=== PATIENT | male | born 1955 | race Caucasian/White ===

== ENCOUNTER 2020-09-08 16:55 | Emergency (ER) | payer MEDICARE, SELFPAY ==
[2020-09-08 17:01] VITALS: BP 152/70; PULSE 54; RESP 20; TEMP 36.6; O2SAT 100; BMI 24.8
--- NOTE | 2020-09-08 17:04 | DI.RAD.S_ITS ---
PROCEDURE: XR CHEST 1V INDICATIONS: chest pain TECHNIQUE: One view of the chest was acquired. COMPARISON: None. FINDINGS: Surgical changes and devices: None. Lungs and pleura: Mild diffuse interstitial prominence. Cannot exclude interstitial pulmonary edema. No pleural effusions or pneumothorax. Mediastinum: Mediastinal contours appear normal. Heart size is normal. Bones and chest wall: No suspicious bony lesions. Overlying soft tissues appear unremarkable. IMPRESSION: Mild diffuse interstitial prominence. Cannot exclude interstitial pulmonary edema. Dictated by: Dario Sr M.D. on 09/08/2020 at 17:36 Approved by: Dario Sr M.D. on 09/08/2020 at 17:37
[2020-09-08] MEDS: ASPIRIN 81 MG CHEW TAB 324 MG (17:09)
[2020-09-08 17:10] VITALS: BP 190/90; PULSE 95; RESP 21; O2SAT 100
--- NOTE | 2020-09-08 17:10 | PC.NURSE ---
Patient placed on 2L O2 nasal canula.
--- NOTE | 2020-09-08 17:10 | ED.CHESTPAIN ---
HPI - Chest Pain General Chief Complaint: Chest Pain Stated Complaint: chest pain Time Seen by Provider: 09/08/20 17:06 Source: patient Mode of arrival: Wheelchair Limitations: no limitations History of Present Illness HPI narrative: Patient is a 65-year-old [id number] diabetic male here for evaluation of chest discomfort. He states that it has been off and on for the past 24-36 hours however the pain he is experiencing now started approximately 2 hours prior to arrival here in the emergency department. Has been consistent for the past 2 hours. Has had some shortness of breath with it. Not worse with movement or palpation. No prior heart attacks. Related Data Allergies Allergy/AdvReac Type Severity Reaction Status Date / Time No Known Drug Allergies Allergy Verified 09/08/20 17:01 Review of Systems Constitutional Constitutional: Denies chills and Denies fever(s) Cardiovascular Cardiovascular: Reports chest pain, Denies rapid heart rate and Reports dyspnea Respiratory Respiratory: Reports dyspnea Gastrointestinal Gastrointestinal: Denies abdominal pain, Denies nausea and Denies vomiting Genitourinary Genitourinary: Denies dysuria Genitourinary: Denies dysuria Musculoskeletal Musculoskeletal: Denies arthralgias and Denies myalgias Integumentary/Breasts Skin/Breast: Denies rash Neurologic Neurologic: Denies behavioral changes Psychiatric Psychiatric: Denies behavioral changes Hematologic/Lymphatic Hematologic/Lymphatic: Denies easy bleeding and Denies easy bruising Allergic/Immunologic Allergic/Immunologic: Denies urticaria Patient History Medical History Diabetes Social History Smoking Status: Current every day smoker Smoking Status: Current every day smoker Substance Use Type: marijuana Exam Initial Vital Signs Initial Vital Signs: Vital Signs Temperature 97.8 F 09/08/20 17:01 Pulse Rate 54 L 09/08/20 17:01 Respiratory Rate 20 09/08/20 17:01 Blood Pressure 152/70 H 09/08/20 17:01 Pulse Oximetry 100 09/08/20 17:01 Const General: cooperative and No comfortable Limitations: mental status not altered HENMT Head: normal to inspection and normocephalic Resp Effort & Inspection: normal respiratory effort Auscultation: clear to auscultation bilaterally Cardio Rate: bradycardic Rhythm: regular rhythm GI Inspection: non-distended Palpation: soft Skin Lesions: no lesions Rashes: no rashes Neuro General: patient alert, patient awake and patient oriented x3 Cognition: normal cognition Speech: speech normal Extrem General: No edema Psych Appearance: grossly normal and well kempt Scores GCS Felix coma scale eye opening: Spontaneous [place] coma scale verbal response: Orientated Felix coma scale motor response: Obey commands [place] coma scale total score: 15 Course Orders Ordered: ED Orders 09/08/20 17:04 XR chest 1V Stat EKG-12 Lead Stat 09/08/20 17:05 Complete Blood Count AUTO DIFF Stat Comprehensive Metabolic Panel Stat Lipase Stat Partial Thromboplastin Time Stat Prothrombin Time INR Stat Troponin & CK Cardiac Panel Stat 09/08/20 17:13 COVID19 Stat Heparin Sodium/Dextrose (Heparin Drip) 25,000 unit in 500 mls @ 20 mls/hr IV CONT MAXIMO; Protocol Last Admin: 09/08/20 17:15 Dose: 1,000 units/hr, 20 mls/hr Documented by: Discontinued Medications Heparin Sodium (Porcine) (Heparin 5,000 Unit/Ml Vial) 5,000 unit IV NOW ONE Stop: 09/08/20 17:11 Last Admin: 09/08/20 17:13 Dose: 5,000 unit Documented by: Morphine Sulfate (Morphine 4 Mg/Ml Inj) 4 mg IV NOW ONE Stop: 09/08/20 17:12 Last Admin: 09/08/20 17:14 Dose: 4 mg Documented by: Vital Signs Vital signs: Vital Signs - 8 hr 09/08/20 17:01 09/08/20 17:10 09/08/20 17:15 Temperature 97.8 F Pulse Rate 54 L 95 H 93 H Respiratory Rate 20 21 26 H Blood Pressure 152/70 H 190/90 H 184/93 H Pulse Oximetry 100 100 100 09/08/20 17:18 09/08/20 17:19 Temperature Pulse Rate 93 H 88 Respiratory Rate 19 17 Blood Pressure 179/91 H Pulse Oximetry 100 100 MDM - Chest Pain Lab Data Result diagrams: 09/08/20 17:05 09/08/20 17:05 Labs: Lab Results 09/08/20 Range/Units 17:05 WBC 14.5 H (4.5-11.0) X10^3/uL RBC 5.70 (4.5-5.9) X10^6/uL Hgb 15.8 (13.5-17.5) g/dL Hct 48.6 (41-53) % MCV 85.1 (80-100) fL MCH 27.7 (26-34) PG MCHC 32.5 (30-36) % RDW 14.6 (11.6-14.8) % Plt Count 285 (150-400) X10^3/uL Neut % (Auto) 74.9 (50-75) % Lymph % (Auto) 20.1 L (25-40) % [place] % (Auto) 4.4 (3-14) % Eos % (Auto) 0.1 L (2-4) % Baso % (Auto) 0.5 (0-2) % Neut # (Auto) 83010 H (9836-9513) /uL Lymph # (Auto) 2900 (6980-9805) /uL [place] # (Auto) 600 (0-900) /uL Eos # (Auto) 0 (0-450) /uL Baso # (Auto) 100 (0-100) /uL Imaging Data Chest x-ray: Attestation: I personally reviewed and interpreted this imaging study as follows: My Impression: No widened mediastinum No pneumothorax, nor signs are ECG Data Attestation: I personally reviewed and interpreted this ECG as follows: Prior ECG tracings: not available for review Interpretation: Sinus rhythm Ventricular rate of 53 ST elevations [address] depressions hat V2 V3 V4 ST-elevation HI MDM Narrative Medical decision making narrative: Patient was given aspirin. Started the patient on heparin drip. Was also given morphine for pain control. Will hold on nitro given the [address] elevations. Patient not hypotensive. Discussed the case with Dr. Celaya with emergency medicine as [facility] who accepts the patient for transfer for cardiac catheterization. Patient is stable for transfer. Discharge Plan Departure Patient Disposition: [facility] Clinical Impression: ST elevation myocardial infarction (STEMI)
[2020-09-08 17:12] LABS: Add Manual Diff / Slide Review NO; Basophils Absolute Auto 100 /uL (0-100); Basophils Percent Auto 0.5 % (0-2); Eosinophils Absolute Auto 0 /uL (0-450); Eosinophils Percent Auto 0.1 % (2-4); Hematocrit 48.6 % (41-53); Hemoglobin 15.8 g/dL (13.5-17.5); Lymphocytes Absolute Auto 2900 /uL (1100-4500); Lymphocytes Percent Auto 20.1 % (25-40); Mean Corpuscular HGB Conc 32.5 % (30-36); Mean Corpuscular Hemoglobin 27.7 PG (26-34); Mean Corpuscular Volume 85.1 fL (80-100); Monocytes Absolute Auto 600 /uL (0-900); Monocytes Percent Auto 4.4 % (3-14); Neutrophils Absolute Auto 10900 /uL (1500-7000); Neutrophils Percent Auto 74.9 % (50-75); Platelet Count 285 X10^3/uL (150-400); Red Cell Distribution Width 14.6 % (11.6-14.8); White Blood Cell Count 14.5 X10^3/uL (4.5-11.0)
[2020-09-08] MEDS: HEPARIN 5,000 UNIT/ML VIAL 5000 UNIT IV (17:13)
[2020-09-08] MEDS: MORPHINE 4 MG/ML INJ IV (17:14)
[2020-09-08 17:15] VITALS: BP 184/93; PULSE 93; RESP 26; O2SAT 100
[2020-09-08] MEDS: HEPARIN DRIP 25,000 UNIT/500 ML IV.SOLN 20 UNIT IV (17:15)
[2020-09-08 17:18] VITALS: PULSE 93; RESP 19; O2SAT 100
[2020-09-08 17:19] VITALS: BP 179/91; PULSE 88; RESP 17; O2SAT 100
[2020-09-08 17:21] LABS: INR 0.9 (0.9-1.3); Prothrombin Time 10.5 SECONDS (10.1-12.7)
[2020-09-08 17:24] LABS: PTT Partial Thromboplastin Tim 37 SECONDS (26.4-36.2)
[2020-09-08 17:26] LABS: Alanine Aminotransferase 48 IU/L (<50); Albumin Globulin Ratio 1.4 (1.0-2.8); Alkaline Phosphatase 131 U/L (38-126); Aspartate Aminotransferase 49 IU/L (17-59); BUN Creatinine Ratio 21.2 (6-22); Bilirubin Total 0.4 mg/dL (0.2-1.3); Blood Urea Nitrogen 14 mg/dL (9-20); Calcium 9.7 mg/dL (8.4-10.2); Carbon Dioxide 26 mmol/L (22-32); Chloride 98 mmol/L (98-107); Creatine Kinase 181 U/L (55-170); Estimated Glomerular Filt Rate > 60.0 mL/min (>60); Globulin 3.6 g/dL (1.7-4.1); Glucose 334 mg/dL (80-110); HEMOLYSIS < 15 (0-50); Lipase 156 U/L (23-300); Potassium 3.5 mmol/L (3.4-5.1); Sodium 136 mmol/L (137-145); Total Protein 8.6 g/dL (6.3-8.2)
--- NOTE | 2020-09-08 17:27 | PC.NURSE ---
Heparin drip continued in transfer at 20ml//hr.
[2020-09-08 17:34] LABS: COVID19 -Nasal RAPID Negative (Negative)
[2020-09-08 17:40] LABS: Troponin I 0.778 ng/mL (0.01-0.034)
[2020-09-08 17:41] LABS: CKMB % Relative Index 4.9 % (1.5-5.0); Creatine Kinase MB 8.81 ng/mL (<2.37)
== END 2020-09-08 17:28 | disposition short-term general hospital (02) ==
PROVIDERS: Emergency Provider Emergency Medicine
DX: I21.3 ST elevation (STEMI) myocardial infarction of unspecified site (principal); R06.00 Dyspnea, unspecified; E11.9 Type 2 diabetes mellitus without complications; Z79.4 Long term (current) use of insulin
CPT/HCPCS: 36415; 71045; 80053; 82550; 82553; 83690; 84484; 85025; 85610; 85730; 87635; 93005; 93010; 96374; 96375; 99284; J1644; J2270

== ENCOUNTER → 2023-09-19 09:16 | Outpatient (CLI) | payer MEDICARE, SELFPAY ==
--- NOTE | 2023-09-19 09:20 | DI.RAD.S_ITS ---
PROCEDURE: XR CERVICAL SPINE 2V OR 3V INDICATIONS: neck pain, left shoulder pain TECHNIQUE: 3 view(s) of the cervical spine were acquired. COMPARISON: None. FINDINGS: Bones: No fractures or dislocations to the C6 level. Straightening of the normal cervical lordosis. There are multilevel degenerative changes of the cervical spine with facet and uncovertebral arthropathy, disc height loss with degenerative endplate changes and spurring. This is most pronounced at C5-C6 and C6-C7. The lateral masses of C1 appear intact on the odontoid view. No suspicious bony lesions. Soft tissues: No prevertebral soft tissue swelling. IMPRESSION: Multilevel degenerative changes of the cervical spine, most pronounced at C5-C6 and C6-C7. Dictated by: Juice Sue M.D. on 09/19/2023 at 10:44 Approved by: Juice Sue M.D. on 09/19/2023 at 10:46
--- NOTE | 2023-09-19 09:20 | DI.RAD.S_ITS ---
PROCEDURE: XR SHOULDER LT MIN 2V INDICATIONS: neck pain, left shoulder pain TECHNIQUE: 3 views of the shoulder were acquired. COMPARISON: None. FINDINGS: Bones: No fractures or dislocations. Mild acromioclavicular joint osteoarthritis. No suspicious bony lesions. Visualized ribs appear intact. Soft tissues: No suspicious soft tissue calcifications. IMPRESSION: Mild degenerative changes of the acromioclavicular joint. No acute osseous abnormalities. Dictated by: Juice Sue M.D. on 09/19/2023 at 10:46 Approved by: Juice Sue M.D. on 09/19/2023 at 10:47
== END ==
PROVIDERS: PCP Family Medicine; Referring Provider Family Medicine; Visit Provider Family Medicine
DX: M47.812 Spondylosis without myelopathy or radiculopathy, cervical region (principal); M25.512 Pain in left shoulder; M54.2 Cervicalgia
CPT/HCPCS: 72040; 73030

== ENCOUNTER 2025-01-08 21:15 | Inpatient (IN) | payer MEDICARE, SELFPAY ==
[2025-01-08 21:17] VITALS: BP 162/78; PULSE 133; RESP 20; TEMP 37.7; O2SAT 97; BMI 25.1
[2025-01-08 21:30] VITALS: BP 161/77
[2025-01-08 21:31] VITALS: PULSE 126; RESP 13; O2SAT 97
[2025-01-08 22:00] VITALS: PULSE 121; RESP 25; O2SAT 97
--- NOTE | 2025-01-08 22:05 | DI.RAD.S_ITS ---
PROCEDURE: XR CHEST 1V INDICATIONS: suspected sepsis TECHNIQUE: One view of the chest was acquired. COMPARISON: [facility], CR, XR CHEST 1V, 09/08/2020, 17:11. FINDINGS: Surgical changes and devices: None. Lungs and pleura: Redemonstration of chronic coarse interstitial prominence likely sequela of chronic interstitial lung disease/emphysema. Diffuse patchy opacities of the left mid and lower lung zones. Mild perihilar airway thickening. Mediastinum: Mediastinal contours appear normal. Heart size is normal. Bones and chest wall: No suspicious bony lesions. Overlying soft tissues appear unremarkable. IMPRESSION: Patchy left mid and lower lung zone opacity suspicious for pneumonia. This is superimposed on background chronic interstitial coarsening. Recommend follow up chest radiograph 4-6 weeks after treatment to document resolution of findings and/or return to baseline examination. Dictated by: John Smith M.D. on 01/09/2025 at 0:11 Approved by: John Smith M.D. on 01/09/2025 at 0:12
[2025-01-08] MEDS: SODIUM CHLORIDE 0.9% 1,000 ML 1000 ML IV (22:21)
[2025-01-08 22:24] VITALS: BP 161/77; PULSE 124; RESP 20; TEMP 37.7; O2SAT 97; BMI 25.1
[2025-01-08 22:30] VITALS: PULSE 128; RESP 18; O2SAT 97
--- NOTE | 2025-01-08 22:41 | EKG_ITS ---
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
--- NOTE | 2025-01-08 22:46 | DI.CT.S_ITS ---
PROCEDURE: CT ABDOMEN PELVIS W CON INDICATIONS: altered mental status, pain TECHNIQUE: After the administration of intravenous contrast, axial sections acquired from the lung bases to the pubic symphysis. Coronal and sagittal reformats were performed. For radiation dose reduction, the following was used: automated exposure control, adjustment of mA and/or kV according to patient size. COMPARISON: None. FINDINGS: Image quality: Significant motion artifact degrades image quality. Lower Chest: Upper lobe predominant pulmonary emphysematous changes. Prominent hiatal hernia. Mild airway thickening of the bilateral lower lobes with patchy opacities involving the dependent portions of the lower lobes. This may represent atelectasis and/or pneumonia or aspiration. ABDOMEN: Liver: No solid mass. Gallbladder: No radiopaque gallstones or wall thickening. Biliary ducts: No biliary dilation. Pancreas: No ductal dilation. Spleen: Size is within normal limits. Adrenal Glands: No adrenal nodules. Kidneys and Ureters: No hydronephrosis. No solid mass. No complex renal cystic lesion which requires follow up. Stomach and Bowel: Normal colonic caliber, without significant wall thickening. Extensive colonic diverticulosis without evidence for acute diverticulitis. No evidence for small bowel obstruction or associated inflammatory changes. Peritoneum: No abnormal intraperitoneal fluid. No free air. Ventral Wall: No significant ventral hernia. Abdominal Nodes: No retroperitoneal or mesenteric adenopathy by size criteria. Vessels: Scattered atherosclerotic calcifications of the abdominal aorta and iliac vessels without aneurysmal dilatation. The inferior vena cava appears patent. PELVIS: Pelvic Organs: Prostatomegaly. Bladder: Urinary bladder decompressed by Hopkins catheter. Pelvic Nodes: Multiple enlarged left inguinal lymph nodes significantly more pronounced compared to the right side. The largest is more irregular in shape with possible central necrosis measuring 1.9 x 2.7 cm (161/series 2). Miscellaneous: No inguinal hernias are seen. Bones: No aggressive osseous abnormality. No acute vertebral body compression fractures. Multilevel spondylitic changes throughout the imaged spine. No suspicious osseous lesions. IMPRESSION: Patchy bibasilar airspace opacities may represent atelectasis and/or pneumonia or aspiration. There is a prominent hiatal hernia. Colonic diverticulosis without acute diverticulitis. Multiple enlarged left inguinal lymph nodes with the largest appearing irregular and demonstrating possible central necrosis. Recommend outpatient inguinal ultrasound further characterization. Otherwise, no acute abnormalities identified in the abdomen or pelvis. Dictated by: John Smith M.D. on 01/09/2025 at 0:13 Approved by: John Smith M.D. on 01/09/2025 at 0:19
--- NOTE | 2025-01-08 22:54 | DI.CT.S_ITS ---
PROCEDURE: CT HEAD/BRAIN WO CON INDICATIONS: altered mental status TECHNIQUE: Noncontrast 4.5 mm thick angled axial sections acquired from the foramen magnum to the vertex, with coronal and sagittal reformats. For radiation dose reduction, the following was used: automated exposure control, adjustment of mA and/or kV according to patient size. COMPARISON: [facility], MR, MR BRAIN WITHOUT CONTRAST, 01/31/2024, 7:46. [facility], CT, CT HEAD WITHOUT CONTRAST, 01/30/2024, 22:49. FINDINGS: Image quality: Diagnostic. CSF spaces: Basal cisterns are patent. No extra-axial fluid collections. The ventricles are symmetric in size and shape. Brain: No intracranial bleeds or masses. There is moderate cerebral volume loss for age, with resultant ventricular and sulcal prominence. There are moderate periventricular and deep white matter chronic small vessel ischemic changes. There is intracranial internal carotid artery atherosclerosis. There is moderate area of left parieto-occipital lobe encephalomalacia compatible with sequela previously described infarction. Skull and face: Calvarium and visualized facial bones appear intact, without suspicious lesions. Sinuses: Visualized sinuses and mastoids are clear. IMPRESSION: 1. CT head without acute intracranial abnormalities or acute calvarial fractures. 2. Age-related senescent changes and sequela of chronic small vessel ischemic disease. 3. 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 Dictated by: John Smith M.D. on 01/09/2025 at 0:20 Approved by: John Smith M.D. on 01/09/2025 at 0:22
[2025-01-08 22:56] LABS: Add Manual Diff / Slide Review NO; Basophils Absolute Auto 100 /uL (0-100); Basophils Percent Auto 0.7 % (0-2); Eosinophils Absolute Auto 0 /uL (0-450); Hematocrit 37.7 % (41-53); Hemoglobin 12.5 g/dL (13.5-17.5); Lymphocytes Absolute Auto 300 /uL (1100-4500); Lymphocytes Percent Auto 1.6 % (25-40); Mean Corpuscular HGB Conc 33.1 % (30-36); Mean Corpuscular Hemoglobin 28.2 PG (26-34); Monocytes Absolute Auto 700 /uL (0-900); Monocytes Percent Auto 3.3 % (3-14); Neutrophils Absolute Auto 19600 /uL (1500-7000); Neutrophils Percent Auto 94.4 % (50-75); Platelet Count 336 X10^3/uL (150-400); Red Blood Cell Count 4.44 X10^6/uL (4.5-5.9); Red Cell Distribution Width 14.7 % (11.6-14.8); White Blood Cell Count 20.8 X10^3/uL (4.5-11.0)
[2025-01-08 23:04] LABS: INR 1.1 (0.9-1.3)
[2025-01-08 23:05] LABS: Appearance Urine UA CLEAR; Bilirubin Urine UA NEGATIVE (NEGATIVE); Color Urine UA YELLOW; Glucose Urine UA 2+ g/dL (Negative); Ketones Urine UA TRACE (NEGATIVE); Leukocyte Esterase Urine UA NEGATIVE (NEGATIVE); Nitrite Urine UA NEGATIVE (Negative); Occult Blood Urine UA 1+ (Negative); Protein Urine UA TRACE (Negative); Urobilinogen Urine UA 0.2 E.U./dL (0.2)
[2025-01-08 23:07] LABS: PTT Partial Thromboplastin Tim 39 SECONDS (25.1-36.5)
[2025-01-08 23:12] LABS: Bacteria Urine None Seen; Culture Indicated Urine Cult Not Indicated; RBC Urine 5-10/HPF (0-5/HPF); Squamous Epithelial Cell Urine 0-1 /HPF (0-5/HPF); Transitional Epi Cells Urine 0-1/HPF (0-5/HPF); Urine Volume 10mL (spun); WBC Urine 0-1/HPF (0-5/HPF)
[2025-01-08 23:12] LABS: Alanine Aminotransferase 23 IU/L (<50); Albumin 4.5 g/dL (3.5-5.0); Albumin Globulin Ratio 1.4 (1.0-2.8); Alkaline Phosphatase 79 U/L (38-126); Aspartate Aminotransferase 31 IU/L (17-59); BUN Creatinine Ratio 22.5 (6-22); Bilirubin Total 0.6 mg/dL (0.2-1.3); Blood Urea Nitrogen 23 mg/dL (9-20); Calcium 10.1 mg/dL (8.4-10.2); Carbon Dioxide 23 mmol/L (22-32); Chloride 93 mmol/L (98-107); Estimated Glomerular Filt Rate > 60 mL/min (>60); Globulin 3.2 g/dL (1.7-4.1); Glucose 273 mg/dL (80-110); HEMOLYSIS < 15 (0-50); Lactate (Lactic Acid) 2.1 mmol/L (0.7-2.1); Lipase 22 U/L (23-300); Potassium 4.4 mmol/L (3.4-5.1); Sodium 129 mmol/L (137-145); Total Protein 7.7 g/dL (6.3-8.2)
[2025-01-08 23:18] LABS: Ketones (Beta-Hydroxybutyrate) 0.49 mmol/L (<0.27)
[2025-01-08] MEDS: CEFEPIME 2 GM in SODIUM CHLORIDE 0.9% 100 ML IV (23:18)
[2025-01-08] MEDS: HYDROMORPHONE 1 MG INJ IV (23:19)
[2025-01-09] VITALS (23 sets, daily range): BP systolic 97–142; BP diastolic 53–83; PULSE 65–150; RESP 15–35; O2SAT 81–98; BMI 25.0
[2025-01-09 00:01] LABS: Base Excess VBG -1.7 mmol/L (0-4); HCO3 VBG 22 mmol/L (24-28); Oxygen Saturation VBG 55 % (70-75); PCO2 VBG 33.6 mmHg (45-50); PO2 VBG 28 mmHg (35-45); Total CO2 VBG 21 mmol/L (24-29); pH VBG 7.42 (7.33-7.43)
[2025-01-09 00:09] LABS: Influenza A - CEPHEID Flu A NEGATIVE (NEGATIVE); Influenza B - CEPHEID Flu B NEGATIVE (NEGATIVE); Respiratory Syncytial Virus Negative (Negative)
[2025-01-09] MEDS: VANCOMYCIN 2,000 MG/400 ML PIGGYBACK 200 MG IV (00:09)
[2025-01-09 00:14] LABS: COVID-19 CEPHEID 4-PLEX PCR Negative (Negative)
[2025-01-09 00:21] LABS: Reflexed Lactate in 2 Hours Y
--- NOTE | 2025-01-09 00:37 | EKG_ITS ---
[place] [id number] [place] [id number] Test Date: 2025-01-09 Pat Name: Ike Barnes Department: Room: Gender: Male Commercial Counsel: JACQUES BLANCO : 1955 Requested By: Order Number: [id number] Reading MD: Fabrice Ayala MD Measurements Intervals [place] Rate: 131 P: [place]: QRS: 81 QRSD: 116 T: 74 QT: 320 QTc: 472 Interpretive Statements Sinus Rhythm Anteroseptal infarct , possibly acute Electronically Signed On 01-10-2025 8:50:41 PDT by Fabrice Ayala MD
--- NOTE | 2025-01-09 00:39 | ED.GENADULT ---
HPI - General Adult General Chief complaint: Altered Mental Status Stated complaint: confusion, unresponsive Time Seen by Provider: 01/08/25 21:21 Mode of arrival: Family Vehicle History of Present Illness HPI narrative: 69-year-old gentleman brought in from home by medics with altered mental status, too confused to meaningfully participate in exam or review of systems. His family notes that he had a stroke last year, he has been increasingly confused. Incontinent of urine and stool per medics. Family not immediately available for interview. Related Data Allergies Allergy/AdvReac Type Severity Reaction Status Date / Time No Known Drug Allergies Allergy Verified 09/08/20 17:01 Review of Systems Review of Systems ROS Unobtainable: Unobtainable due to medical condition and Unobtainable due to mental status/LOC Patient History Medical History Diabetes Social History Smoking Status: Current every day smoker Smoking Status: Current every day smoker tobacco type: cigarettes Exam Initial Vital Signs Initial Vital Signs: Vital Signs Temperature 100 F H 01/08/25 21:17 Pulse Rate 133 H 01/08/25 21:17 Respiratory Rate 20 01/08/25 21:17 Blood Pressure 162/78 H 01/08/25 21:17 Pulse Oximetry 97 01/08/25 21:17 Oxygen Delivery Method Nasal Cannula 01/08/25 21:17 General: Chronically ill-appearing, altered, moaning seemingly in pain HEENT: Dry mucous membranes, normal sclera with reactive pupils, Neck: Positive JVD Respiratory: Lungs with mild rhonchi bilaterally left greater than right, minimal wheeze, mild tachypnea without retractions Cardiac: Tachycardic, no murmurs appreciated Abdomen: Soft, diffusely tender to palpation, moans with exam Skin: Pale, overall poor perfusion Neurologic: Minimally interactive, he is moving all extremities, is not able to cooperate with exam Extremities: No lower extremity edema. He has old bruise on his hip with no pain behaviors in manipulating his hips Procedures Central Line Placement Right IJ: Time of procedure: 03:43 Patient Placed on Monitor/Pulse Ox: Yes MD Prep: mask and gloves Central Line Prep: Chlorhexidine scrub Ultrasound Used for Placement: Yes Central Line Lumen Inserted: triple Post Procedure: sutured in place, good blood return, all ports aspirated, flushed, capped and sterile dressing applied Post Procedure X-Ray: tip of catheter in good position and no pneumothorax seen (No pneumothorax on the right side, site of the central line. Pneumothorax already appreciated on the left side, appropriately treated with chest tube in place) Patient Tolerated Procedure: Well Complications: none Chest Tube Chest Tube 1: Time of procedure: 03:45 Chest Tube Location: left and anterior axillary line Size of Tube (cm): 10 (bailee catheter) Chest Tube Prep: Yes betadine prep and sterile drapes applied Post Procedure CXR?: Yes Patient Tolerated Procedure: Yes (improved oxygenation) Intubation Time of Intubation: 03:47 sedative: Etomidate Mg Given: 20 paralytic: Succinylcholine Mg Given: 100 Assist Device Used: fiber optic device ET Tube Size: 8 Tube Secured Depth (cm): 24 Tube Secured Location: teeth Tube Placement Confirmation: Visualized tube passing through cords, Equal breath sounds bilaterally, Confirmation by capnometry and Chest Xray Patient Tolerated Procedure: Well Course Orders Ordered: ED Orders 01/08/25 22:05 XR chest 1V Stat EKG-12 Lead Stat RT Consult Eval and Treat NOW 01/08/25 22:20 Complete Blood Count AUTO DIFF Stat Comprehensive Metabolic Panel Stat Ketones (Beta-Hydroxybutyrate) Stat Lactate (Lactic Acid) Stat Lipase Stat PTT Partial Thromboplastin Primitivo Stat Procalcitonin Stat Prothrombin Time INR Stat 01/08/25 22:36 Blood Culture Stat 01/08/25 22:38 UA Complete [Urinalysis and Microscopic] Stat 01/08/25 22:46 CT abdomen pelvis w con Stat VBG [Venous Blood Gas] STAT 01/08/25 22:54 CT head/brain wo con Stat 01/08/25 23:25 Covid-19 + FLU A/B + RSV - PCR Stat 01/08/25 23:57 Venous Blood Gas Routine 01/09/25 00:32 EKG-12 Lead Stat 01/09/25 00:53 XR chest 1V Stat 01/09/25 01:04 XR chest 1V Stat 01/09/25 01:55 Arterial Blood Gas ROUTINE 01/10/25 05:00 Hemoglobin and Hematocrit DAILY Platelet Count DAILY 01/11/25 05:00 Hemoglobin and Hematocrit DAILY Platelet Count DAILY Hydromorphone HCl (Hydromorphone 2 Mg Inj) 2 mg IV Q15MIN PRN PRN Reason: pain Last Admin: 01/09/25 06:06 Dose: 2 mg Documented By: Admin: 01/09/25 05:42 Dose: 2 mg Documented By: Admin: 01/09/25 04:27 Dose: 2 mg Documented By: LS NOREPINEPHRINE BITARTRATE/D5W (Levophed) 4 mg in 250 mls @ 29.767 mls/hr IV TITRATE MAXIMO; Protocol Last Admin: 01/09/25 02:23 Dose: Not Given Documented By: RLC Propofol (Diprivan) 1,000 mg in 100 mls @ 2.381 mls/hr IV TITRATE MAXIMO; Protocol Last Titration: 01/09/25 02:40 Dose: 0 mcg/kg/min, 0 mls/hr Documented By: Titration: 01/09/25 02:18 Dose: 5 mcg/kg/min, 2.381 mls/hr Documented By: Titration: 01/09/25 01:29 Dose: 10 mcg/kg/min, 4.763 mls/hr Documented By: Admin: 01/09/25 01:15 Dose: 5 mcg/kg/min, 2.381 mls/hr Documented By: RLC Heparin Sodium/Dextrose (Heparin Drip) 25,000 unit in 500 mls @ 19.051 mls/hr IV CONT MAXIMO; Protocol Last Admin: 01/09/25 03:01 Dose: Not Given Documented By: RLC Morphine Sulfate 50 mg/ Sodium (Chloride) 50 mls @ 5 mls/hr IV TITRATE MAXIMO; Protocol Last Admin: 01/09/25 04:39 Dose: 40 mg/hr, 40 mls/hr Documented By: Titration: 01/09/25 04:39 Dose: Infused Documented By: Titration: 01/09/25 04:25 Dose: 40 mg/hr, 40 mls/hr Documented By: Titration: 01/09/25 04:10 Dose: 30 mg/hr, 30 mls/hr Documented By: Titration: 01/09/25 03:50 Dose: 25 mg/hr, 25 mls/hr Documented By: Titration: 01/09/25 03:25 Dose: 20 mg/hr, 20 mls/hr Documented By: Titration: 01/09/25 03:15 Dose: 15 mg/hr, 15 mls/hr Documented By: Titration: 01/09/25 03:06 Dose: 10 mg/hr, 10 mls/hr Documented By: Titration: 01/09/25 02:59 Dose: 6 mg/hr, 6 mls/hr Documented By: Admin: 01/09/25 02:16 Dose: 5 mg/hr, 5 mls/hr Documented By: TEA Vancomycin HCl 1,000 mg/ (Sodium Chloride) 250 mls @ 167 mls/hr IV Q12H MAXIMO Morphine Sulfate 50 mg/ Sodium (Chloride) 50 mls @ 2 mls/hr IV TITRATE MAXIMO; Protocol Naloxone HCl (Naloxone 0.4 Mg/Ml Vial) 0.2 mg IV Q2MIN PRN PRN Reason: Opiate Reversal Ondansetron HCl (Ondansetron 4 Mg/2 Ml Inj) 4 mg IV NOW PRN PRN Reason: Nausea And Vomiting Ondansetron HCl (Ondansetron 4 Mg Odt) 4 mg SL NOW PRN PRN Reason: Nausea And Vomiting Ondansetron HCl (Ondansetron 4 Mg/2 Ml Inj) 4 mg IV Q8HR PRN PRN Reason: Nausea And Vomiting Discontinued Medications Etomidate (Etomidate 2 Mg/Ml 10 Ml Vial) 20 mg IV NOW ONE Stop: 01/09/25 00:52 Last Admin: 01/09/25 00:51 Dose: 20 mg Documented By: TEA Heparin Sodium (Porcine) (Heparin 5,000 Unit/Ml Vial) 5,000 unit 60 unit/kg (5000 unit) IV NOW ONE Stop: 01/09/25 01:04 Last Admin: 01/09/25 01:12 Dose: 5,000 unit Documented By: TEA Hydromorphone HCl (Hydromorphone 1 Mg Inj) 1 mg IV NOW ONE Stop: 01/08/25 22:55 Last Admin: 01/08/25 23:19 Dose: 1 mg Documented By: HUGH Hydromorphone HCl (Hydromorphone 1 Mg Inj) 2 mg IV Q15MIN PRN PRN Reason: pain Last Admin: 01/09/25 04:12 Dose: 2 mg Documented By: TEA Hydromorphone HCl (Hydromorphone 2 Mg Inj) 2 mg IV Q15MIN MAXIMO Sodium Chloride (Normal Saline 0.9%) 1,000 mls @ 1,000 mls/hr IV BOLUS ONE Stop: 01/08/25 23:04 Last Infusion: 01/08/25 23:19 Dose: Infused Documented By: Admin: 01/08/25 22:21 Dose: 1,000 mls/hr Documented By: HUGH Cefepime HCl 2 gm/ Sodium (Chloride) 100 mls @ 200 mls/hr IV NOW ONE Stop: 01/08/25 22:53 Last Infusion: 01/09/25 00:00 Dose: Infused Documented By: Admin: 01/08/25 23:18 Dose: 200 mls/hr Documented By: HUGH Vancomycin HCl/Dextrose (Vancomycin) 2,000 mg in 400 mls @ 200 mls/hr IV NOW ONE Stop: 01/09/25 00:59 Last Infusion: 01/09/25 00:30 Dose: 200 mls/hr Documented By: Admin: 01/09/25 00:09 Dose: 200 mls/hr Documented By: TEA Morphine Sulfate 50 mg/ Sodium (Chloride) 50 mls @ 5 mls/hr IV TITRATE MAXIMO; Protocol Sodium Chloride (Normal Saline 0.9%) 1,000 mls @ 1,000 mls/hr IV BOLUS ONE Stop: 01/09/25 02:16 Last Infusion: 01/09/25 01:44 Dose: Infused Documented By: Admin: 01/09/25 01:17 Dose: 1,000 mls/hr Documented By: TEA Ketamine HCl (Ketamine 500 Mg/5 Ml Inj) 10 mg IV NOW ONE Stop: 01/09/25 05:01 Last Admin: 01/09/25 04:50 Dose: 10 mg Documented By: JAXON Morphine Sulfate (Morphine 4 Mg/Ml Inj) 10 mg IV NOW ONE Stop: 01/09/25 03:43 Last Admin: 01/09/25 03:55 Dose: 10 mg Documented By: TEA Propofol (Propofol 200 Mg/20 Ml Vial) 20 mg IV NOW ONE Stop: 01/09/25 01:03 Last Admin: 01/09/25 01:02 Dose: 20 mg Documented By: TEA Propofol (Propofol 200 Mg/20 Ml Vial) 40 mg IV NOW ONE Stop: 01/09/25 01:08 Last Admin: 01/09/25 01:07 Dose: 40 mg Documented By: TEA Propofol (Propofol 200 Mg/20 Ml Vial) 20 mg IV NOW ONE Stop: 01/09/25 01:34 Last Admin: 01/09/25 03:52 Dose: 20 mg Documented By: TEA Succinylcholine Chloride (Succinylcholine 200 Mg/10 Ml Vial) 100 mg IV NOW ONE Stop: 01/09/25 00:53 Last Admin: 01/09/25 00:52 Dose: 100 mg Documented By: TEA Vancomycin HCl (Vancomycin Per Pharmacy) 1 request MISC NOW ONE Stop: 01/08/25 22:53 Last Admin: 01/09/25 00:13 Dose: Not Given Documented By: TEA Vital Signs Vital signs: Vital Signs - 8 hr 01/08/25 22:24 01/08/25 22:30 01/09/25 00:50 Temperature 99.8 F H Pulse Rate 124 H 128 H 150 H Respiratory Rate 20 18 28 H Blood Pressure 161/77 H 142/74 H Pulse Oximetry 97 97 81 L Oxygen Delivery Method Room Air 01/09/25 00:55 01/09/25 01:00 01/09/25 01:05 Temperature Pulse Rate 150 H 130 H 140 H Respiratory Rate 32 H 15 24 Blood Pressure 137/77 138/79 140/83 Pulse Oximetry 84 L 94 88 L Oxygen Delivery Method 01/09/25 01:10 01/09/25 01:15 01/09/25 01:20 Temperature Pulse Rate 130 H 127 H 124 H Respiratory Rate 29 H 30 H 35 H Blood Pressure 109/64 101/64 102/64 Pulse Oximetry 91 93 96 Oxygen Delivery Method 01/09/25 01:25 01/09/25 01:30 01/09/25 01:35 Temperature Pulse Rate 123 H 125 H 116 H Respiratory Rate 26 H 27 H Blood Pressure 127/71 128/63 114/56 L Pulse Oximetry 98 93 97 Oxygen Delivery Method 01/09/25 01:40 01/09/25 01:45 01/09/25 01:50 Temperature Pulse Rate 115 H 110 H 114 H Respiratory Rate 30 H 30 H 32 H Blood Pressure 114/61 106/55 L 103/59 L Pulse Oximetry 98 98 95 Oxygen Delivery Method 01/09/25 01:55 01/09/25 02:00 01/09/25 02:15 Temperature Pulse Rate 111 H 122 H 113 H Respiratory Rate 30 H 30 H 27 H Blood Pressure 97/53 L 134/62 107/55 L Pulse Oximetry 93 96 93 Oxygen Delivery Method 01/09/25 02:30 01/09/25 03:00 01/09/25 04:00 Temperature Pulse Rate 109 H 120 H 122 H Respiratory Rate 23 34 H 30 H Blood Pressure 101/59 L 105/62 Pulse Oximetry 91 84 L 87 L Oxygen Delivery Method Medical Decision Making Lab Data 01/08/25 22:20 01/08/25 22:20 Labs: Lab Results 01/08/25 01/08/25 01/08/25 Range/Units 22:20 22:38 23:25 WBC 20.8 H (4.5-11.0) X10^3/uL RBC 4.44 L (4.5-5.9) X10^6/uL Hgb 12.5 L (13.5-17.5) g/dL Hct 37.7 L (41-53) % MCV 85.0 (80-100) fL MCH 28.2 (26-34) PG MCHC 33.1 (30-36) % RDW 14.7 (11.6-14.8) % Plt Count 336 (150-400) X10^3/uL Neut % (Auto) 94.4 H (50-75) % Lymph % (Auto) 1.6 L (25-40) % [place] % (Auto) 3.3 (3-14) % Eos % (Auto) 0.0 L (2-4) % Baso % (Auto) 0.7 (0-2) % Neut # (Auto) 74985 H (0399-4038) /uL Lymph # (Auto) 300 L (6524-8755) /uL [place] # (Auto) 700 (0-900) /uL Eos # (Auto) 0 (0-450) /uL Baso # (Auto) 100 (0-100) /uL PT 12.0 (9.4-12.5) SECONDS INR 1.1 (0.9-1.3) APTT 39 H (25.1-36.5) SECONDS VBG pH (7.33-7.43) VBG pCO2 (45-50) mmHg VBG pO2 (35-45) mmHg VBG HCO3 (24-28) mmol/L VBG Total CO2 (24-29) mmol/L VBG O2 Saturation (70-75) % VBG Base Excess (0-4) mmol/L Sodium 129 L (137-145) mmol/L Potassium 4.4 (3.4-5.1) mmol/L Chloride 93 L (98-107) mmol/L Carbon Dioxide 23 (22-32) mmol/L BUN 23 H (9-20) mg/dL Creatinine 1.02 (0.66-1.25) mg/dL Estimated GFR > 60 (>60) mL/min BUN/Creatinine Ratio 22.5 H (6-22) Glucose 273 H (80-110) mg/dL Lactate 2.1 (0.7-2.1) mmol/L Calcium 10.1 (8.4-10.2) mg/dL Total Bilirubin 0.6 (0.2-1.3) mg/dL AST 31 (17-59) IU/L ALT 23 (<50) IU/L Alkaline Phosphatase 79 (38-126) U/L Total Protein 7.7 (6.3-8.2) g/dL Albumin 4.5 (3.5-5.0) g/dL Globulin 3.2 (1.7-4.1) g/dL Albumin/Globulin Ratio 1.4 (1.0-2.8) Lipase 22 L (23-300) U/L Procalcitonin 3.40 H (<0.5) ng/mL Urine Color Yellow Urine Appearance Clear Urine pH 6.0 (4.5-8.0) Ur Specific [place] 1.020 (1.000-1.035) Urine Protein Trace H (Negative) Urine Glucose (UA) 2+ H (Negative) g/dL Urine Ketones Trace H (NEGATIVE) Urine Occult Blood 1+ H (Negative) Urine Nitrate Negative (Negative) Urine Bilirubin Negative (NEGATIVE) Urine Urobilinogen 0.2 (0.2) E.U./dL Ur Leukocyte Esterase Negative (NEGATIVE) Urine RBC 5-10/hpf H (0-5/HPF) Urine WBC 0-1/hpf (0-5/HPF) Ur Squamous Epith Cells 0-1 /hpf (0-5/HPF) Ur Transition Epith Cell 0-1/hpf (0-5/HPF) Urine Bacteria None seen (None) Ur Culture Indicated? Cult not indicated Vol Urine Centrifuged 10ml (spun) Ketones 0.49 H (<0.27) mmol/L SARS-CoV-2 (PCR) Negative (Negative) Influenza A (RT-PCR) Flu a negative (NEGATIVE) Influenza B (RT-PCR) Flu b negative (NEGATIVE) RSV (PCR) Negative (Negative) 01/08/25 01/09/25 Range/Units 23:57 00:27 WBC (4.5-11.0) X10^3/uL RBC (4.5-5.9) X10^6/uL Hgb (13.5-17.5) g/dL Hct (41-53) % MCV (80-100) fL MCH (26-34) PG MCHC (30-36) % RDW (11.6-14.8) % Plt Count (150-400) X10^3/uL Neut % (Auto) (50-75) % Lymph % (Auto) (25-40) % Oto[place] % (Auto) (3-14) % Eos % (Auto) (2-4) % Baso % (Auto) (0-2) % Neut # (Auto) (7231-4409) /uL Lymph # (Auto) (0957-5296) /uL [place] # (Auto) (0-900) /uL Eos # (Auto) (0-450) /uL Baso # (Auto) (0-100) /uL PT (9.4-12.5) SECONDS INR (0.9-1.3) APTT (25.1-36.5) SECONDS VBG pH 7.42 (7.33-7.43) VBG pCO2 33.6 L (45-50) mmHg VBG pO2 28 L (35-45) mmHg VBG HCO3 22 L (24-28) mmol/L VBG Total CO2 21 L (24-29) mmol/L VBG O2 Saturation 55 L (70-75) % VBG Base Excess -1.7 L (0-4) mmol/L Sodium (137-145) mmol/L Potassium (3.4-5.1) mmol/L Chloride (98-107) mmol/L Carbon Dioxide (22-32) mmol/L BUN (9-20) mg/dL Creatinine (0.66-1.25) mg/dL Estimated GFR (>60) mL/min BUN/Creatinine Ratio (6-22) Glucose (80-110) mg/dL Lactate 6.9 H* (0.7-2.1) mmol/L Calcium (8.4-10.2) mg/dL Total Bilirubin (0.2-1.3) mg/dL AST (17-59) IU/L ALT (<50) IU/L Alkaline Phosphatase (38-126) U/L Total Protein (6.3-8.2) g/dL Albumin (3.5-5.0) g/dL Globulin (1.7-4.1) g/dL Albumin/Globulin Ratio (1.0-2.8) Lipase (23-300) U/L Procalcitonin (<0.5) ng/mL Urine Color Urine Appearance Urine pH (4.5-8.0) Ur Specific [place] (1.000-1.035) Urine Protein (Negative) Urine Glucose (UA) (Negative) g/dL Urine Ketones (NEGATIVE) Urine Occult Blood (Negative) Urine Nitrate (Negative) Urine Bilirubin (NEGATIVE) Urine Urobilinogen (0.2) E.U./dL Ur Leukocyte Esterase (NEGATIVE) Urine RBC (0-5/HPF) Urine WBC (0-5/HPF) Ur Squamous Epith Cells (0-5/HPF) Ur Transition Epith Cell (0-5/HPF) Urine Bacteria (None) Ur Culture Indicated? Vol Urine Centrifuged Ketones (<0.27) mmol/L SARS-CoV-2 (PCR) (Negative) Influenza A (RT-PCR) (NEGATIVE) Influenza B (RT-PCR) (NEGATIVE) RSV (PCR) (Negative) Urine Dip Bedside Urine Glucose 1000 mg/dl Bedside Urine Bilirubin - Negative Bedside Urine Ketone +/- 5 Urine Specific [place] 1.015 Bedside Urine Occult Blood + Bedside Urine pH 6 Bedside Urine Protein +/- 15 Bedside Urine Urobilinogen - Negative Bedside Urine Nitrite - Negative Bedside Urine Leukocytes - Negative Esterase Point of care testing: Urine Dip Bedside Urine Glucose 1000 mg/dl Bedside Urine Bilirubin - Negative Bedside Urine Ketone +/- 5 Urine Specific [place] 1.015 Bedside Urine Occult Blood + Bedside Urine pH 6 Bedside Urine Protein +/- 15 Bedside Urine Urobilinogen - Negative Bedside Urine Nitrite - Negative Bedside Urine Leukocytes - Negative Esterase MDM Narrative Medical decision making narrative: CC: Acutely altered mental status Complicating co-morbidities: Reported stroke a year ago Data collected from: Medics Medical records reviewed: None initially available After initial workup, significant decompensation, resuscitation and attempts to transfer to higher level care, spoke with new accounts banking representative at [facility] who indicated the patient had severe coronary artery disease and abnormal stress test with angiography declined in February of 2024, poorly-controlled diabetes and hypertension was discharged from [facility] in February of 2024 and at that point made DNR/comfort care. Unfortunately, I was not aware of any this prior to interventions and initial workup. Differential considered: Sepsis, pneumonia, viral syndrome, intra-abdominal abscess, intracranial hemorrhage, DKA, patient has hydrocodone and methadone as part of his prescription medications and acute narcotic withdrawal may be contributing to the abdominal pain Exam documented above, pertinent findings include: Patient is moaning and in extremis. Seems to be experiencing abdominal discomfort, has mild rhonchi bilaterally without significant respiratory distress or wheeze. No obvious skin changes or abscess. He is moving all extremities but is not aware of surroundings responding to direct questions Lab Test results independently reviewed as above. Pertinent findings: CBC shows significant leukocytosis at 20.8 with significant left shift, mild anemia Chemistries are notable for normal renal function, hyponatremia at 1:29 a.m., glucose of 273, liver studies are not elevated Initial lactate is 2.1, repeat is 6.9 Initial procalcitonin is elevated at 3.4 Urine shows red blood cells but no white blood cells or bacteria. Did not suspect urine is the source for infection Once the patient was made DNR with full comfort care, all additional labs were canceled. Troponin was in this collection of canceled labs Independently reviewed EKG: Appears to be sinus tachycardia poor baseline difficult to interpret, lateral ST depression appreciated Repeat EKG shows rhythm change, question atrial fibrillation versus sinus arrhythmia. Q-waves anteriorly with ST-elevation inferiorly and depression laterally. EKG change was accompanied by significant acute deterioration clinical status Imaging studies independently reviewed: -Initial chest x-ray shows left lung infiltrates concerning for pneumonia -CT abdomen shows bibasilar airspace opacities consistent with pneumonia. No diverticulitis, enlarged left inguinal lymph nodes with largest appearing irregular and demonstrating possible central necrosis. -CT scan of the head done for acute mental status changes were is unremarkable After acute decompensation, initial chest x-ray post intubation suggests left sided pneumothorax. ET tube in position Final chest x-ray shows central line in place, ET tube in position, left chest tube in place with fully inflated lung and resolution of slight right-sided mediastinal shift Treatments: On initial arrival patient was presumed to be septic, was started on cefepime and vancomycin after blood cultures were ordered. He was not hypotensive. Because he was tachycardic he was given fluids. Source of infection was yet to be identified but suspected to be intra-abdominal given his clinical presentation and pain behaviors Patient had acute degeneration clinical symptoms with significant decrease in oxygen saturations from the mid 90s on room air to the 50s. Acute rhythm change unclear if this was AFib with aberrancy, developing STEMI but was concurrent with acute hypoxic change Patient was urgently moved to room 1 for more expedient resuscitation -additional fluids given -intubated without difficulty and improved oxygenation with decreasing heart rate is oxygenation improved -post intubation x-ray suggested pneumothorax which could explain the acute respiratory deterioration. Left-sided chest tube was placed with continued improved oxygenation. Left lung pneumonia becoming more apparent -central line placed, that point blood pressure is falling and Levophed is initiated -call to [facility], reviewed acute EKG changes in deterioration with kaiako kura tuarua felt that he clearly was sick but did not meet STEMI criteria and with the degree of sepsis and other medical issues urgent heart catheterization was not immediately indicated. ICU beds not available at [facility] -call to [facility] to discuss transfer. Medical records are finally available and turns out that the patient a year ago had wanted to be DNR DNI, comfort measures -family was now available and family conference is held. Caregiver and son do agree that patient definitely felt that he was done living and did want to be DNR. His son notes that he really got a bed, was too weak to do any meaningful activities and had repeatedly told his son that he was ready to -in light of new information, decision to extubate patient and move to full comfort with family at bedside was made -drips and pressors are discontinued, he is transitioned from propofol sedation to morphine drip, with family at bedside he is extubated We will evaluate in the ER over the next 1-2 hours to see if he significantly deteriorates quickly or if admission for comfort treatment we will be appropriate Due to his high baseline narcotic tolerance he is going fairly significantly on morphine drip. we are actually running out of morphine availability in the hospital this evening. We will add 2 mg of IV Dilaudid every 15 minute as a push for pain behaviors Discussion: 69-year-old gentleman initially brought in by medics with minimal data available, obviously septic with significantly altered mental status unable to participate in history taking. Began resuscitation efforts for presumed sepsis and search for sepsis. Patient had acute deterioration than in retrospect likely was spontaneous pneumothorax secondary to his long-term tobacco use and developing pneumonia on the left side cause significant hypoxia which led to his change in cardiac rhythm. After stabilization with chest tube, intubation, central line fluids, pressors, heparin with concern for acute STEMI, antibiotics already infused findings reviewed with outside hospital who indicated that the your before he would wanted to be DNR, comfort care with overall exceptionally poor prognosis with severe cardiac disease, stroke and poor quality of life. Family is not available for further discussion who confirm very poor quality of life in the fact that he would want to have minimal interventions. Based on that he was extubated with the family at bedside with morphine drip. He was on methadone and Vicodin so does have high narcotic tolerance with significant pain behaviors, obviously looks uncomfortable. Morphine is titrated to comfort. Family remains at bedside, questions are answered have remained available for questions throughout the emergency room stay. patient is still moaning in discomfort, morphine is now at 40 mics per hour, added Dilaudid 2 mg as needed dosing. Consultation with the hospitalist she will try 10 mg sepsis of ketamine to see if we can get this gentleman at least comfortable so he is not moaning in pain. It does not appear that his and is immediately imminent, I believe he and his family may be better suited by admission to the floor for continued comfort care Critical Care Time Critical Care Time Critical Care Time: Yes Total Critical Care Time: 76 Attestation: Critical care time is separate from other billable procedures. There is a high probability of a significant, sudden or life-threatening deterioration that requires my full and direct attention, intervention and personal management. This critical care time includes consultation with family and other consulting doctors, review of records, and interpretation of data from labs, EKGs and imaging as well as managements of respiratory failure, on neurologic failure, sepsis, shock, cardiac failure Discharge Plan Departure Patient Disposition: Admitted as Observation Clinical Impression: Bacterial pneumonia, Spontaneous pneumothorax, Acute hyponatremia, Acute hypoxic respiratory failure, Need for comfort care Altered mental status Qualifiers: Altered mental status type: unspecified Qualified Code(s): R41.82 - Altered mental status, unspecified Sepsis Qualifiers: Sepsis type: sepsis due to unspecified organism Sepsis acute organ dysfunction status: with acute organ dysfunction Cardiac rhythm disorder or disturbance or change Qualifiers: Arrhythmia type: unspecified cardiac arrhythmia Qualified Code(s): I49.9 - Cardiac arrhythmia, unspecified Admit Date/Time: 01/09/25 04:29 Admit Provider: Chase Mullen
[2025-01-09] MEDS: ETOMIDATE 2 MG/ML 10 ML VIAL 20 MG IV (00:51)
[2025-01-09] MEDS: SUCCINYLCHOLINE 200 MG/10 ML VIAL 100 MG IV (00:52)
--- NOTE | 2025-01-09 00:53 | DI.RAD.S_ITS ---
PROCEDURE: XR CHEST 1V INDICATIONS: ` TECHNIQUE: One view of the chest was acquired. COMPARISON: [facility], CR, XR CHEST 1V, 01/08/2025, 22:01. FINDINGS: Surgical changes and devices: Endotracheal tube tip projects approximately 1.8 cm above the juan antonio. Defibrillator pad projects over the left chest. Possible nasogastric tube is not completely imaged. Lungs and pleura: Persistent diffuse interstitial prominence with new Harshal B lines noted bilaterally. There is loss of vascular distinctness. Patchy ill-defined opacities of the left mid and lower lung zones not significantly changed. No significant pleural effusion. No pneumothorax. Mediastinum: Mediastinal contours appear normal. Heart size is normal. Bones and chest wall: No suspicious bony lesions. Overlying soft tissues appear unremarkable. IMPRESSION: Worsening of diffuse interstitial prominence with new Harshal B lines bilaterally with loss of vascular distinctness. Findings are suspicious for pulmonary edema. More prominent patchy left mid and lower lung zone opacities may represent concurrent infectious process. A nasogastric tube is likely present but its distal tip not well imaged on this exam. Dictated by: John Smith M.D. on 01/09/2025 at 1:34 Approved by: John Smith M.D. on 01/09/2025 at 1:36
[2025-01-09] MEDS: propofoL 200 MG/20 ML VIAL 20 MG IV ×2 (01:02→03:52)
--- NOTE | 2025-01-09 01:04 | DI.RAD.S_ITS ---
PROCEDURE: XR CHEST 1V INDICATIONS: post intubation TECHNIQUE: One view of the chest was acquired. COMPARISON: [facility], CR, XR CHEST 1V, 01/08/2025, 22:01. [facility], CT, CT ABDOMEN PELVIS W CON, 01/08/2025, 23:24. [facility], CR, XR CHEST 1V, 01/09/2025, 0:49. FINDINGS: Surgical changes and devices: There is a left-sided pleural drain. A right-sided central line is been placed, with the tip overlying the inferior aspect of the superior vena cava, 1 cm above the cavoatrial junction. An endotracheal tube is seen, with the tip 2.5 cm above the juan antonio. Lungs and pleura: Generalized interstitial prominence can be seen. On this supine examination, no large pleural effusions are seen. No focal areas of lung consolidation are seen. A small pneumothorax can be seen at the left lung apex. Mediastinum: Mediastinal contours appear normal. Heart size is normal. Atherosclerotic calcification of the aortic arch is noted. Bones and chest wall: No suspicious bony lesions. Age-appropriate bony degenerative changes are seen. Overlying soft tissues appear unremarkable. IMPRESSION: The tip of the endotracheal tube is seen 2.5 cm above the juan antonio. New placed right-sided central line, with the tip overlying the inferior aspect of the superior vena cava. A left-sided pleural drain has been placed. There is a small pneumothorax seen at the left lung apex. Interstitial prominence is seen, which is attributed to pulmonary edema. Differential diagnosis includes atypical infiltrate. There is no cardiomegaly. Note: No significant discrepancy from the preliminary report. Dictated by: Erasmo Rose M.D. on 01/09/2025 at 8:02 Approved by: Erasmo Rose M.D. on 01/09/2025 at 8:06
[2025-01-09] MEDS: propofoL 200 MG/20 ML VIAL 40 MG IV (01:07)
[2025-01-09 01:08] LABS: Lactate 2HR (Lactic Acid Rflx) 6.9 mmol/L (0.7-2.1)
[2025-01-09] MEDS: HEPARIN 5,000 UNIT/ML VIAL 5000 UNIT IV (01:12)
[2025-01-09] MEDS: propofoL 1,000 MG/100 ML VIAL 2.381 MG IV (01:15)
[2025-01-09] MEDS: SODIUM CHLORIDE 0.9% 1,000 ML 1000 ML IV (01:17)
[2025-01-09] MEDS: MORPHINE 50 MG in SODIUM CHLORIDE 0.9% 45 ML IV ×2 (02:16→09:34)
[2025-01-09] MEDS: MORPHINE 4 MG/ML INJ 10 MG IV (03:55)
[2025-01-09] MEDS: HYDROMORPHONE 1 MG INJ 2 MG IV (04:12)
[2025-01-09] MEDS: HYDROMORPHONE 2 MG INJ IV ×5 (04:27→06:45)
[2025-01-09] MEDS: MORPHINE 50 MG in SODIUM CHLORIDE 0.9% 45 ML 40 MG IV ×2 (04:39→06:31)
[2025-01-09] MEDS: KETAMINE 500 MG/5 ML INJ 10 MG IV (04:50)
--- NOTE | 2025-01-09 04:56 | PM.HP.1 ---
History of Present Illness History of Present Illness Chief complaint: confusion, unresponsive Narrative: Testing testing testing testing 69-year-old male with past medical history of coronary disease/[place], CVA, fibromyalgia, chronic pain and diabetes presents with unresponsiveness. Per the patient's son's report, the patient was at his baseline yesterday. However, this morning, the patient became very confused and then became unresponsive. The patient was immediately brought into our ER for further evaluation. Of note history was very limited as the patient's son himself was not at home this morning but only found his dad confused and unresponsive and immediately called EMS. In our ER, the patient was found to be in septic shock. Patient also went into respiratory failure requiring intubation. Patient did have a central line in broad-spectrum antibiotic started. Lactate was 7. However the patient's son states that patient wishes for DNR/DNI. The patient's son only would want comfort measures at this point. The patient was extubated and was to start on comfort measures only. FORMERLY [facility], [facility]–1983 Medical History Diabetes Social History Smoking Status: Current every day smoker Meds Home Medications and Allergies Allergies Allergy/AdvReac Type Severity Reaction Status Date / Time No Known Drug Allergies Allergy Verified 09/08/20 17:01 Review of Systems Review of Systems ROS: Yes unobtainable due to mental status Exam Vital Signs (past 8 hours): - 01/08/25 21:17 01/08/25 21:30 01/08/25 21:31 Temperature 100 F H Pulse Rate 133 H 126 H Respiratory Rate 20 13 Blood Pressure 162/78 H 161/77 H Pulse Oximetry 97 97 Oxygen Delivery Method Nasal Cannula 01/08/25 22:00 01/08/25 22:24 01/08/25 22:30 Temperature 99.8 F H Pulse Rate 121 H 124 H 128 H Respiratory Rate 25 H 20 18 Blood Pressure 161/77 H Pulse Oximetry 97 97 97 Oxygen Delivery Method Room Air Oxygen Delivery Method Room Air Narrative Exam Narrative: Physical Exam: GENERAL: Sleep like state. HEENT: Nonicteric sclerae, HEART: Regular rate and rhythm without murmurs. No lower extremities edema. LUNGS: Bilateral rhonchi ABDOMEN: Soft, positive bowel sounds, nontender. SKIN: No rash, no excessive bruising, petechiae, or purpura. NEUROLOGIC:Sleep like state Objective Labs 01/08/25 22:20 01/08/25 22:20 Labs: Laboratory Results - last 24 hr 01/08/25 01/08/25 01/08/25 22:20 22:38 23:25 WBC 20.8 H RBC 4.44 L Hgb 12.5 L Hct 37.7 L MCV 85.0 MCH 28.2 MCHC 33.1 RDW 14.7 Plt Count 336 Neut % (Auto) 94.4 H Lymph % (Auto) 1.6 L [place] % (Auto) 3.3 Eos % (Auto) 0.0 L Baso % (Auto) 0.7 Neut # (Auto) 46650 H Lymph # (Auto) 300 L [place] # (Auto) 700 Eos # (Auto) 0 Baso # (Auto) 100 PT 12.0 INR 1.1 APTT 39 H VBG pH VBG pCO2 VBG pO2 VBG HCO3 VBG Total CO2 VBG O2 Saturation VBG Base Excess Sodium 129 L Potassium 4.4 Chloride 93 L Carbon Dioxide 23 BUN 23 H Creatinine 1.02 Estimated GFR > 60 BUN/Creatinine Ratio 22.5 H Glucose 273 H Lactate 2.1 Calcium 10.1 Total Bilirubin 0.6 AST 31 ALT 23 Alkaline Phosphatase 79 Total Protein 7.7 Albumin 4.5 Globulin 3.2 Albumin/Globulin Ratio 1.4 Lipase 22 L Procalcitonin 3.40 H Urine Color Yellow Urine Appearance Clear Urine pH 6.0 Ur Specific [place] 1.020 Urine Protein Trace H Urine Glucose (UA) 2+ H Urine Ketones Trace H Urine Occult Blood 1+ H Urine Nitrate Negative Urine Bilirubin Negative Urine Urobilinogen 0.2 Ur Leukocyte Esterase Negative Urine RBC 5-10/hpf H Urine WBC 0-1/hpf Ur Squamous Epith Cells 0-1 /hpf Ur Transition Epith Cell 0-1/hpf Urine Bacteria None seen Ur Culture Indicated? Cult not indicated Vol Urine Centrifuged 10ml (spun) Ketones 0.49 H SARS-CoV-2 (PCR) Negative Influenza A (RT-PCR) Flu a negative Influenza B (RT-PCR) Flu b negative RSV (PCR) Negative 01/08/25 01/09/25 23:57 00:27 WBC RBC Hgb Hct MCV MCH MCHC RDW Plt Count Neut % (Auto) Lymph % (Auto) [place] % (Auto) Eos % (Auto) Baso % (Auto) Neut # (Auto) Lymph # (Auto) [place] # (Auto) Eos # (Auto) Baso # (Auto) PT INR APTT VBG pH 7.42 VBG pCO2 33.6 L VBG pO2 28 L VBG HCO3 22 L VBG Total CO2 21 L VBG O2 Saturation 55 L VBG Base Excess -1.7 L Sodium Potassium Chloride Carbon Dioxide BUN Creatinine Estimated GFR BUN/Creatinine Ratio Glucose Lactate 6.9 H* Calcium Total Bilirubin AST ALT Alkaline Phosphatase Total Protein Albumin Globulin Albumin/Globulin Ratio Lipase Procalcitonin Urine Color Urine Appearance Urine pH Ur Specific [place] Urine Protein Urine Glucose (UA) Urine Ketones Urine Occult Blood Urine Nitrate Urine Bilirubin Urine Urobilinogen Ur Leukocyte Esterase Urine RBC Urine WBC Ur Squamous Epith Cells Ur Transition Epith Cell Urine Bacteria Ur Culture Indicated? Vol Urine Centrifuged Ketones SARS-CoV-2 (PCR) Influenza A (RT-PCR) Influenza B (RT-PCR) RSV (PCR) Assessment & Plan Assessment & Plan narrative: Septic shock. Admit the patient to medical observation. Of note the patient's son states the patient is DNR/DNI and would only want comfort measures only. Will continue morphine drip and as needed IV Ativan. The patient is very critical as the patient was chest extubated. Acute respiratory failure status post extubation. Elevated lactic acid. Elevated troponin. History of coronary disease. History of diabetes. History of hypertension. DVT prophylaxis none due to comfort measures only. CODE STATUS DNR/DNI and comfort measures only. Disposition to be determined as patient is critically ill and was just extubated for comfort measures only. - As the provider of this telehealth evaluation, requested by the patient's evaluating physician, I attest that I introduced myself to the patient, provided my credentials and determined that telemedicine via a real-time, 2 way interactive audio and video platform is an appropriate and effective means of providing this service. - I reviewed the patient's chart and had a discussion with the member of the patient's treatment team. - The patient and I mutually agreed with continuation of this evaluation via telemedicine. The patient consented for the telemedicine evaluation. - This virtual encounter was taken place from [place]. The encounter was approximately 35 minutes. The nurse was present during the entire time of the encounter and was able to move the stethoscope in appropriate directions. The patient was evaluated at [facility]. Time-Based Coding :: [TOTAL MINUTES] spent with patient and on the chart (including review of chart, obtaining history, exam, reviewing outside data, placing orders, documenting exam and treatment plan, and counseling patient) on [DATE].
--- NOTE | 2025-01-09 05:48 | PC.NURSE ---
Assumed care of patient around midnight. Per report, pt to this ED d/t altered mental status. Currently receiving sepsis work up. Pt sinus tachy on tele throughout visit w/rates in the 120s. Pt otherwise, resting while receiving care. Family remains bedside. At 00:20 pt noted over the monitor to have increased tachycardia w/rate in the 150s. Upon assessment, pt had become increasingly agitated, tachypneic, breathing labored and rattle sounds audible. Pt's pulse Ox replaced and sats fluctuated between 50-60% RA. Pt's vacomycin was stopped d/t possible adverse reaction. Additional staff called into the room for assistance and Doc reevaluation requested. At 00:40, pt was moved into room #1 in preparation for RSI. RT is bedside. Pt tolerated intubation procedure well. OG tube is placed, noted 24 cm at teeth. OG tube placement confirmed by xray. MD placed chest tube at 01:18 and pt's breathing starts to improve. Provider then preps & places a central line for continuation of care at 01:38. At 01:47, it is noted that pt's OG tube has become dislodged and is removed. At 01:54, after MD discusses treatment course w/family and retrieval of POLST form from external facility MD orders life sustaining measures to be discontinued and comfort measures are now in place. At 02:47, pt is extubated. MD, RT, RN and family are bedside. Pt is given O2 by non-rebreather for comfort and pain meds are administered per MD orders to promote comfort. Transferred care of pt at 05:20 to SHERRIE Brice in ICU 29.
[2025-01-09] MEDS: LORazepam 2 MG/ML INJ 1 MG IV (07:57)
--- NOTE | 2025-01-09 10:53 | CM.DANOTE ---
DCP note pt is a 69yo M admitted for comfort care/anticipated to pass in hospital after being founds unresponsive. was in septic shock. Per hospitalist in monring rounds, pt this morning time of 09, see note for more. Per RN, family at bedside, contacts notified. P: no further CM needs at this time, will continue to follow as needed ARTURO Mejia Discharge Planning/Care Management CM Discharge Assessment Start: 01/09/25 10:44 Freq: Status: Active Protocol: Document 01/09/25 10:49 SL (Rec: 01/09/25 10:53 SL Desktop) Discharge Planning Assessment Assigned Farebox Repairer ARTURO Rene DPOA/Assigned Designee Name Elizabeth, spouse Contact Information [phone] Advance Directives? No Discharge Plan Pt expected to in Hospital Additional Comment pt this morning Please Provide Date Initial DC 01/09/25 Assessment Was Performed
--- NOTE | 2025-01-09 11:36 | PC.NURSE ---
This Rn received bedside report approx 730 am, patient resting in bed Flacc scale of 3. Patient's son, his ex and a family friend at bedside. They dened any needs at this time. chocolate finisher operator RN had recently given dilaudid as ordered prn and morphine gtt was titrated up for patient's comfort per awake overnight monitor RN. Family notified to use call light if needed. Patient at 939 am, with family at bedside. Dr. Hagen notified and came to bedside. family manager notified. PIV (2), central neck line, and chest tube removed after family left. Waiting seed cone picker from [facility]
--- NOTE | 2025-01-10 16:51 | PM.DDS.1 ---
Discharge Summary History of Illness Narrative: Per H&P: 69-year-old male with past medical history of coronary disease/[place], CVA, fibromyalgia, chronic pain and diabetes presents with unresponsiveness. Per the patient's son's report, the patient was at his baseline yesterday. However, this morning, the patient became very confused and then became unresponsive. The patient was immediately brought into our ER for further evaluation. Of note history was very limited as the patient's son himself was not at home this morning but only found his dad confused and unresponsive and immediately called EMS. In our ER, the patient was found to be in septic shock. Patient also went into respiratory failure requiring intubation. Patient did have a central line in broad-spectrum antibiotic started. Lactate was 7. However the patient's son states that patient wishes for DNR/DNI. The patient's son only would want comfort measures at this point. The patient was extubated and was to start on comfort measures only. Hospital Course Date of Admission: 01/09/25 04:29 Date of : 01/09/25 Primary care provider: Chris Armstrong MD Consults: 01/09/25 07:19 Consult to Discharge Planning Routine Comment: Discharge Diagnosis: Septic shock Acute respiratory failure status post extubation. Elevated lactic acid. Elevated troponin. History of coronary disease. History of diabetes. History of hypertension. Hospital Course: Pt was admitted for comfort care after presented to the ED in septic shock secondary to pneumonia. He has a hx of poorly controlled DM2 and severe CAD. He was intubated on admission and a central line was placed as his POLST was not available and there was no family present. Concern for L pneumothorax was noted on post-intubation CXR (central line was placed on the R) and chest tube was placed. After POLST and comfort care status was verified and pt's sone contacted, pt was extubated and transitioned to comfort care. He was admitted to the acute care until on comfort measures and was felt to be imminently dying. He comfortably at 0939. Objective Labs 01/08/25 22:20 01/08/25 22:20
== END 2025-01-09 09:39 | disposition expired | DRG 871 ==
LOC: ED 01-09 04:29 → ICU 01-09 10:52 → AC 01-11 08:59 → ICU 01-11 08:59
PROVIDERS: Admitting Provider Internal Medicine; Emergency Provider Emergency Medicine; PCP Family Medicine; Visit Provider Internal Medicine
DX: A41.9 Sepsis, unspecified organism (principal); J15.9 Unspecified bacterial pneumonia; R65.21 Severe sepsis with septic shock; J96.01 Acute respiratory failure with hypoxia; J93.83 Other pneumothorax; E87.1 Hypo-osmolality and hyponatremia; F17.200 Nicotine dependence, unspecified, uncomplicated; R79.89 Other specified abnormal findings of blood chemistry; I49.9 Cardiac arrhythmia, unspecified; I25.2 Old myocardial infarction; Z51.5 Encounter for palliative care; Z66 Do not resuscitate; Z86.79 Personal history of other diseases of the circulatory system; Z86.39 Personal history of other endocrine, nutritional and metabolic disease
CPT/HCPCS: 0241U; 31500; 32551; 36415; 36556; 70450; 71045; 74177; 80053; 81001; 81003; 82009; 82805; 83605; 83690; 84145; 85025; 85610; 85730; 87040; 93005; 93010; 96361; 96365; 96366; 96367; 96375; 96376; 99285; 99291; 99292; G0378; A9270; J0330; J0692; J1171; J1644; J2060; J2270; J2704; Q9967